=== PATIENT | female | born 1995 | race Caucasian/White ===

== ENCOUNTER 2025-05-27 15:29 | Emergency (ER) | payer OTHER, SELFPAY ==
--- NOTE | 2025-05-27 15:31 | ED.URI ---
HPI - URI/Sore Throat General Chief Complaint: Upper Respiratory Infection Stated Complaint: throat pain Time Seen by Provider: 05/27/25 15:31 Source: patient Mode of arrival: ambulatory Limitations: no limitations History of Present Illness HPI Narrative: Maya is a 30-year-old female patient presenting to the clinic today with complaints sore throat, nasal congestion, slight cough, and some chills. Symptoms have been going on for 2 days. Denies any known fevers. Denies any chest pain or shortness of breath. States that her daughter also has similar symptoms but no sore throat. Related Data Home Medications ?Medication ?Instructions ?Recorded ?Confirmed ?Last Taken ?Type buspirone 10 mg tablet mg 05/27/25 Unknown History hydroxyzine HCl 10 mg tablet mg 05/27/25 Unknown History lamotrigine 100 mg tablet mg 05/27/25 Unknown History (Lamictal) Allergies Allergy/AdvReac Type Severity Reaction Status Date / Time No Known Allergies Allergy Unknown Verified 05/27/25 15:40 Review of Systems Review of Systems: Pertinent positives per HPI. Patient denies any fever,rash, headache, visual changes, dizziness, cough, shortness of breath, chest pain, palpitations, nausea, vomiting, diarrhea, constipation, abdominal pain, or any urinary issues. PMFSH Comments At the time of my signature, I reviewed and agree with the nursing past medical, surgical, social, and family history. There is no relevant family history pertinent to the patient complaint. Exam Narrative: General: Well-developed, well nourished, in no apparent distress Head: Normocephalic, atraumatic Eyes: Pupils equally round and reactive to light bilaterally, EOM intact, sclera and conjunctive clear, no discharge, lids normal Ears: TMs intact and clear, ear canals clear, no drainage, grossly hearing normal. Nose: Nares patent, clear nasal discharge, no inflammation, no sinus tenderness. Mouth: Oral pharynx red with mild tonsillar enlargement without lesions or masses, good dentition, MMM. Neck: Supple, trachea midline, enlargement of anterior cervical nodes, no thyroid masses or goiter palpable. Cardio: Regular rate and rhythm, s1 and s2 normal, no murmur appreciated. Resp: Clear to auscultation bilaterally, no rhonchi, rales, wheezing or rubs Course Course Emergency Course: Portions of this record may have been created with voice recognition software. Level of Care: Express Care Visit Vital Signs Vital signs: Vital Signs Temperature 36.5 C 05/27/25 15:40 Pulse Rate 72 05/27/25 15:40 Respiratory Rate 18 05/27/25 15:40 Blood Pressure 117/78 05/27/25 15:40 Pulse Oximetry 100 05/27/25 15:40 Oxygen Delivery Room Air 05/27/25 15:40 Temperature 36.5 C 05/27/25 15:40 Pulse Rate 72 05/27/25 15:40 Respiratory Rate 18 05/27/25 15:40 Blood Pressure 117/78 05/27/25 15:40 Pulse Oximetry 100 05/27/25 15:40 Oxygen Delivery Room Air 05/27/25 15:40 Vital signs reviewed MDM - URI/Sore Throat MDM Narrative Medical decision making narrative: At the time of visit patient is resting comfortably on the exam table. Patient appears to be nontoxic. Patient presenting with nasal congestion, chills, sore throat, and nonproductive slight cough. No known fever or body aches. Symptoms have been going on for 2 days. Her daughter has similar symptoms without having a sore throat. Offered COVID and influenza testing and patient declined. Strep test was ordered Labs: Strep test was negative in the clinic today. We will send strep for culture. Plan: I suspect patient has URI/pharyngitis. We will send strep for culture. Supportive measures were discussed with the patient and they voiced understanding discharge instructions and agrees to treatment plan. Return precautions reviewed Differential Diagnosis Differential diagnosis: Likely upper respiratory infection, otitis media, sinusitis, viral infection, bronchitis, influenza, pharyngitis and other (COVID) Discharge Plan Discharge Clinical Impression: Upper respiratory infection Qualifiers: URI type: unspecified URI Qualified Code(s): J06.9 - Acute upper respiratory infection, unspecified Pharyngitis Qualifiers: Pharyngitis/tonsillitis etiology: unspecified etiology Qualified Code(s): J02.9 - Acute pharyngitis, unspecified Patient Disposition: Home Condition: Stable Instructions: Antibiotic Form, Pharyngitis (ED), Upper Respiratory Infection (ED) Additional Instructions: Strep test was negative in the clinic today. We will send strep for culture if this comes back positive we will contact him place you on antibiotics at that time. You declined COVID and influenza testing in the clinic today. Increase fluids and stay well hydrated Tylenol/motrin for pain/fever Flonase and OTC antihistamines as directed Vicks vapor rub to open sinuses Sinus rinses for congestion Cepacol spray, cough drops, throat lozenges, warm tea with honey/lemon, gargle salt water to soothe throat BRAT diet for diarrhea Clear liquids x 24 hours then advance as tolerated for nausea/vomiting Go to the ED if you develop a worsening in your condition- high fever not controlled by Tylenol or Motrin, dehydration, weakness, lethargy, shortness of breath, or chest pain. Follow up with your PCP in 3-5 days if symptoms persist. Patient Language: [place]i Prescriptions: No Action buspirone 10 mg tablet hydroxyzine HCl 10 mg tablet lamotrigine [Lamictal] 100 mg tablet Follow-up/Referrals: PHYSICIAN,MICROELECTRONICS ENGINEER [Primary Care Provider] - Time of Disposition: 15:59 Quality NIHSS Nursing Documentation ED NIHSS nursing documentation: reviewed/agree
[2025-05-27 15:40] VITALS: BP 117/78; PULSE 72; RESP 18; TEMP 36.5; O2SAT 100
[2025-05-27 15:59] LABS: EDSTREPNEGPOS1 Negative (Negative)
== END 2025-05-27 15:58 | disposition home or self-care (01) ==
PROVIDERS: Emergency Provider Nurse Practitioner Family; Referring Provider Emergency Medicine
DX: J06.9 Acute upper respiratory infection, unspecified (principal); Z79.899 Other long term (current) drug therapy
CPT/HCPCS: 87081; 87880; 99202; G0463